=== PATIENT | male | born 2000 | race Caucasian/White ===

== ENCOUNTER 2023-10-29 08:02 | Emergency (ER) | payer MEDICAID ==
[~2023-10-29] VITALS: Ht 167.6 cm; Wt 73.9 kg
[2023-10-29 08:12] VITALS: BP 127/79; PULSE 53; RESP 18; TEMP 98.4; O2SAT 96
[2023-10-29] MEDS ORDERED: OMEP40EC24 PO (08:45)
[2023-10-29] MEDS ORDERED: IBUP-2213 PO (08:45)
[2023-10-29 09:01] VITALS: BP 121/75; PULSE 47; RESP 15; O2SAT 100
== END 2023-10-29 09:01 | disposition home or self-care (01) ==
LOC: MED 08:02
DX: R07.89 Other chest pain (principal); Z79.899 Other long term (current) drug therapy
CPT/HCPCS: 93005; 99283